=== PATIENT | male | born 1995 ===

== ENCOUNTER 2023-01-09 08:00 | Day surgery (SDC) | payer OTHER | END 2023-01-09 13:15 | disposition home or self-care (01) | LOC: EDBD → AMB-ENDOS 08:00 | PROVIDERS: ATTEND Colon & Rectal Surgery | DX: K62.5 Hemorrhage of anus and rectum (principal); K64.8 Other hemorrhoids; Z20.822 Contact with and (suspected) exposure to COVID-19 ==